=== PATIENT | male | born 1985 | race Caucasian/White ===

== ENCOUNTER 2017-02-26 01:22 | Emergency (ER) | payer SELFPAY ==
[2017-02-26 01:50] VITALS: RESP 18; TEMP 96.9
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
== END 2017-02-26 01:50 ==
LOC: ER 01:22
DX: F10.129 Alcohol abuse with intoxication, unspecified (principal)
CPT/HCPCS: 99282